=== PATIENT | male | born 1995 | race Caucasian/White ===

== ENCOUNTER 2024-08-12 11:54 | Outpatient (CLI) | payer BC, SELFPAY ==
[2024-08-12 09:19] LABS: ESR < 1 mm/hr (0-15)
[2024-08-12 10:34] LABS: TSH (W/Ref FT4) 1.45 uIU/mL (0.36-3.74)
[2024-08-12 10:37] LABS: C-Reactive Protein < 0.50 mg/dL (<or=0.5)
[2024-08-12 18:22] LABS: Thyroglobulin Antibody <15 U/mL (<=60); Thyroperoxidase Antibody <28 U/mL (<=60)
[2024-08-14 11:16] LABS: Myeloperoxidase Ab IgG <0.2 U (>=0.4); Proteinase 3 Ab (PR3) <0.2 U
== END 2024-08-12 11:55 | disposition home or self-care (01) ==
PROVIDERS: PCP Family Medicine Adult Medicine; Visit Provider Registered Nurse Maternal Newborn
DX: J31.2 Chronic pharyngitis (principal)
CPT/HCPCS: 36415; 85652; 86376; 83516; 84443; 86140